=== PATIENT | male | born 1960 | race Caucasian/White ===

== ENCOUNTER 2022-05-15 11:40 | Emergency (ER) | payer OTHER, SELFPAY ==
[2022-05-15 11:41] VITALS: BP 121/88; PULSE 99; RESP 22; TEMP 35.9; O2SAT 98
--- NOTE | 2022-05-15 17:29 | DI.CT.S_ITS ---
PROCEDURE: CT ABDOMEN PELVIS W CON INDICATIONS: left flank pain, wheezing TECHNIQUE: After the administration of oral and IV contrast, axial sections were acquired from the lung bases to the pubic symphysis. Coronal and sagittal reformats were performed. For radiation dose reduction, the following was used: automated exposure control, adjustment of mA and/or kV according to patient size. COMPARISON: None. FINDINGS: Image quality: Excellent. Lung bases: There is a 0.7 cm subpleural nodule in lingula. Small hiatal hernia. Heart: No significant findings. ABDOMEN: Liver: Unremarkable. Gallbladder: Unremarkable. Biliary ducts: Unremarkable. Pancreas: Unremarkable. Spleen: Unremarkable. Adrenal Glands: Unremarkable. Kidneys and Ureters: Unremarkable. Stomach and Bowel: Stomach, small bowel loops, and colon are unremarkable. There is a large amount of stool in colon. Mild diverticulosis. No acute diverticulitis. Normal appendix. Peritoneum: No abnormal intraperitoneal fluid. No free air. Ventral Wall: No hernia. Abdominal Nodes: No retroperitoneal or mesenteric adenopathy by size criteria. Vessels: Aorta and inferior vena cava are normal in size. PELVIS: Pelvic Organs: Unremarkable. Bladder: Unremarkable. Pelvic Nodes: No enlarged lymph nodes. Miscellaneous: Small fat containing inguinal hernias are seen. Bones: Moderate chronic compression fracture of L5. Degenerative changes in lumbar spine. There is moderate to severe central canal stenosis secondary to short pedicles and posterior disc bulge. IMPRESSION: 1. No acute abnormalities in abdomen or pelvis. 2. A 0.7 cm subpleural nodule in lingula. Please see enclosed follow-up recommendation. 3. Diverticulosis without diverticulitis. 4. A large amount of stool in colon. 5. Moderate chronic compression fracture of L5. 6. 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 Fleischner Society criteria for SOLID lung nodule followup. Nodule size (mm)Low-risk patientHigh-risk patient?4No follow-up neededFollow-up at 12 mo; if no change, no further follow-up>[id number] CT at 12 mo; if no change, no further follow-up needed.Initial follow-up CT at 6-12 mo, then 18-24 mo if no change. >6-8Initial follow-up CT at 6-12 mo, then 18-24 mo if no change. Initial follow-up CT at 3-6 mo, then 9-12 mo and 24 mo if no change. >8Follow-up CT at 3, 9, 24 mo. Or PET and/or biopsy.Same as for low-risk pts. Dominant nodule(s) with part-solid or solid component. [address] to confirm persistence. If persistent, consider biopsy or surgical resection, debra if lesions have >5 mm solid component. Dictated by: Cher Dunn M.D. on 05/15/2022 at 18:58 Approved by: Cher Dunn M.D. on 05/15/2022 at 19:04
--- NOTE | 2022-05-15 17:31 | DI.RAD.S_ITS ---
PROCEDURE: XR CHEST 2V INDICATIONS: wheezing TECHNIQUE: 2 views of the chest were acquired. COMPARISON: None. FINDINGS: Surgical changes and devices: None. Lungs and pleura: Lungs are clear. No pleural effusions or pneumothorax. Mediastinum: Mediastinal contours are normal. Heart size is normal. Bones and chest wall: No suspicious bony abnormalities. Soft tissues appear unremarkable. IMPRESSION: No acute cardiopulmonary disease. Dictated by: Cher Dunn M.D. on 05/15/2022 at 18:53 Approved by: Cher Dunn M.D. on 05/15/2022 at 18:54
--- NOTE | 2022-05-15 17:31 | ED_ITS ---
HPI - Sepsis <JACK Landin - Last Filed: 05/15/22 20:12> General Chief Complaint: Urogenital-Male Evaluation Sepsis Screen: Possible Sepsis Risk Sepsis Infection Criteria Present: Suspected New Infection Narrative: This is a 62-year-old male with history of COPD, is a current smoker, states that he has not seen a doctor in a long time and does not take any significant medications. He states that he is homeless, staying in a hotel the last few nights as his son bought him hotel room, he had onset of left flank pain, states it was quite severe and he is having muscle spasms of his low back. He endorses having low back pain in his history but denies any new significant pain or radiculopathy. He denies any weakness or difficulty ambulating, endorses feeling short of breath, having diaphoresis, states that he has a history of diabetes but does not take any medication. He endorses urinary urgency, frequency, states there has been new sexual partners, denies any penile drainage, denies any scrotal edema or testicular pain. He states that he is COVID vaccinated, states that he feels short of breath, is wheezing, does not have any inhalers because he does not go to the doctor. He called an ambulance and came in by EMS for reported chronic dental pain and left flank pain. Patient states that he has difficulty emptying his bladder, has urinary urgency, burning and frequency, states that he voids frequently to try and empty his bladder. Endorses that he has prostate issues. Review of Systems <JACK Landin - Last Filed: 05/15/22 20:12> Review of Systems Narrative: Review of systems is negative for acute abnormalities unless otherwise noted in HPI Patient History <JACK Landin - Last Filed: 05/15/22 20:12> Social History Smoking Status: Current every day smoker Smoking Status: Current every day smoker Substance Use Type: does not use Exam <JACK Landin - Last Filed: 05/15/22 20:12> Narrative Exam Narrative: Reviewed vitals signs and nursing notes. General: cooperative, comfortable, in no acute distress, well groomed HEENT: symmetrical facial expressions, moist mucous membranes Cardiovascular: regular rate and rhythm, no peripheral edema, warm extremities Respiratory: normal effort, able to speak in complete sentences, wheezing throughout inspiratory and expiratory breaths, without stridor, no rhonchi, diminished breath sounds or hypoxia, mild tachypnea. GI: abdomen soft, nontender to palpation, nondistended, without masses, rebound tenderness or exquisite tenderness with exam. MSK: moves all extremities, neurovascularly intact, no weakness, normal tone Skin: brisk capillary refill, without pallor or erythema Neuro: normal speech and cognition, A&O x3, ambulatory, clear speech Psych: mental status is grossly normal, congruent mood, normal affect, pleasant and cooperative Initial Vital Signs Initial Vital Signs: Vital Signs Temperature 96.7 F L 05/15/22 11:41 Pulse Rate 99 H 05/15/22 11:41 Respiratory Rate 22 05/15/22 11:41 Blood Pressure 121/88 05/15/22 11:41 Pulse Oximetry 98 05/15/22 11:41 Oxygen Delivery Method 05/15/22 11:41 <Vanessa Rowell DO - Last Filed: 05/15/22 20:34> Initial Vital Signs Initial Vital Signs: Vital Signs Temperature 96.7 F L 05/15/22 11:41 Pulse Rate 99 H 05/15/22 11:41 Respiratory Rate 22 05/15/22 11:41 Blood Pressure 121/88 05/15/22 11:41 Pulse Oximetry 98 05/15/22 11:41 Oxygen Delivery Method 05/15/22 11:41 Course <JACK Landin - Last Filed: 05/15/22 20:12> Course Course Narrative: Patient was requesting pain medication, he was given Toradol and hydromorphone, a Senior catheter was placed as patient states he could not void and his bladder appeared full on CT scan. 400 mL were drained from his bladder. Orders Ordered: ED Orders 05/15/22 11:47 Consult to MARKETING PERFORMANCE ANALYST - Remote Recruiter Stat 05/15/22 17:28 EKG-12 Lead Stat RT Consult Eval and Treat NOW 05/15/22 17:29 CT abdomen pelvis w con Stat 05/15/22 17:31 Chest [XR chest 2V] Stat 05/15/22 18:35 Blood Culture Stat 05/15/22 19:00 Chlamydia Gonorrhea PCR -URINE Stat 05/15/22 19:10 COVID19 -Nasal RAPID/Pre-Proc Stat UA Complete [Urinalysis and Microscopic] Stat Albuterol/Ipratropium (Albuterol/Ipratropium 3 Ml Ampul) 3 ml INH Q1H PRN PRN Reason: Shortness Of Breath Last Admin: 05/15/22 17:56 Dose: 3 ml Documented By: ELAINA Bisacodyl (Bisacodyl 10 Mg Supp) 10 mg [place] DAILY KOURTNEY Discontinued Medications Albuterol (Albuterol Hfa Prepack) 1 [place] [facility] [place] Stop: 05/15/22 18:30 Last Admin: 05/15/22 18:37 Dose: 1 box Documented By: ELAINA Hydromorphone HCl (Hydromorphone 0.5 Mg Inj) 0.5 mg IV NOW ONE Stop: 05/15/22 18:56 Last Admin: 05/15/22 19:04 Dose: 0.5 mg Documented By: WENDY Lactated Ringer's (Lactated Ringers) 1,000 mls @ 1,000 mls/hr IV BOLUS ONE Stop: 05/15/22 18:28 Last Admin: 05/15/22 18:37 Dose: 1,000 mls/hr Documented By: WENDY Ketorolac Tromethamine (Ketorolac 30 Mg/Ml Vial) 15 mg IV NOW ONE Stop: 05/15/22 18:56 Last Admin: 05/15/22 19:04 Dose: 15 mg Documented By: WENDY Methylprednisolone (Methylprednisolone 40 Mg/Ml Vial) 80 mg INJ NOW ONE Stop: 05/15/22 19:23 Last Admin: 05/15/22 20:15 Dose: 80 mg Documented By: DELANEY Oxycodone/Acetaminophen (Oxycodone/Apap 5/325 Prepack) 1 [place] [facility] [place] Stop: 05/15/22 19:24 Polyethylene Glycol (Polyethylene Glycol 3350 17 Gm Powd.Pack) 17 gm PO NOW ONE Stop: 05/15/22 19:23 Vital Signs Vital signs: Vital Signs - 8 hr 05/15/22 18:01 05/15/22 18:34 05/15/22 18:53 Pulse Rate 80 86 87 Respiratory Rate 24 Blood Pressure Pulse Oximetry 96 100 Oxygen Delivery Method 05/15/22 18:53 05/15/22 19:00 05/15/22 19:00 Pulse Rate 87 Respiratory Rate Blood Pressure 134/85 129/76 Pulse Oximetry 97 Oxygen Delivery Method Room Air <Vanessa Rowell DO - Last Filed: 05/15/22 20:34> Orders Ordered: ED Orders 05/15/22 11:47 Consult to MARKETING PERFORMANCE ANALYST - Remote Recruiter Stat 05/15/22 17:28 EKG-12 Lead Stat RT Consult Eval and Treat NOW 05/15/22 17:29 CT abdomen pelvis w con Stat 05/15/22 17:31 Chest [XR chest 2V] Stat 05/15/22 18:35 Blood Culture Stat 05/15/22 19:00 Chlamydia Gonorrhea PCR -URINE Stat 05/15/22 19:10 COVID19 -Nasal RAPID/Pre-Proc Stat UA Complete [Urinalysis and Microscopic] Stat Albuterol/Ipratropium (Albuterol/Ipratropium 3 Ml Ampul) 3 ml INH Q1H PRN PRN Reason: Shortness Of Breath Last Admin: 05/15/22 17:56 Dose: 3 ml Documented By: ELAINA Bisacodyl (Bisacodyl 10 Mg Supp) 10 mg CA DAILY KOURTNEY Discontinued Medications Albuterol (Albuterol Hfa Prepack) 1 box [facility] SEEINSTR ONE Stop: 05/15/22 18:30 Last Admin: 05/15/22 18:37 Dose: 1 box Documented By: ELAINA Hydromorphone HCl (Hydromorphone 0.5 Mg Inj) 0.5 mg IV NOW ONE Stop: 05/15/22 18:56 Last Admin: 05/15/22 19:04 Dose: 0.5 mg Documented By: WENDY Lactated Ringer's (Lactated Ringers) 1,000 mls @ 1,000 mls/hr IV BOLUS ONE Stop: 05/15/22 18:28 Last Admin: 05/15/22 18:37 Dose: 1,000 mls/hr Documented By: WENDY Ketorolac Tromethamine (Ketorolac 30 Mg/Ml Vial) 15 mg IV NOW ONE Stop: 05/15/22 18:56 Last Admin: 05/15/22 19:04 Dose: 15 mg Documented By: WENDY Methylprednisolone (Methylprednisolone 40 Mg/Ml Vial) 80 mg INJ NOW ONE Stop: 05/15/22 19:23 Last Admin: 05/15/22 20:15 Dose: 80 mg Documented By: DELANEY Oxycodone/Acetaminophen (Oxycodone/Apap 5/325 Prepack) 1 bottle [facility] SEEINSTR ONE Stop: 05/15/22 19:24 Polyethylene Glycol (Polyethylene Glycol 3350 17 Gm Powd.Pack) 17 gm PO NOW ONE Stop: 05/15/22 19:23 Vital Signs Vital signs: Vital Signs - 8 hr 05/15/22 18:01 05/15/22 18:34 05/15/22 18:53 Pulse Rate 80 86 87 Respiratory Rate 24 Blood Pressure Pulse Oximetry 96 100 Oxygen Delivery Method 05/15/22 18:53 05/15/22 19:00 05/15/22 19:00 Pulse Rate 87 Respiratory Rate Blood Pressure 134/85 129/76 Pulse Oximetry 97 Oxygen Delivery Method Room Air Sepsis Guideline Criteria <JACK Landin - Last Filed: 05/15/22 20:12> Level 1 - Infection Sepsis Infection Criteria Present: Suspected New Infection Treatment Initiated Antibiotics:: IV antimicrobials will be initiated as soon as possible after recognition of sepsis state and within one hour for both sepsis and septic shock. MDM - Sepsis <JACK Landin - Last Filed: 05/15/22 20:12> Lab Data Result diagrams: 05/15/22 11:30 05/15/22 11:30 Labs: Lab Results 05/15/22 05/15/22 05/15/22 Range/Units 11:30 11:30 11:30 WBC 7.1 (4.5-11.0) X10^3/uL RBC 5.46 (4.5-5.9) X10^6/uL Hgb 17.5 (13.5-17.5) g/dL Hct 51.5 (41-53) % MCV 94.4 (80-100) fL MCH 32.0 (26-34) PG MCHC 33.9 (30-36) % RDW 14.3 (11.6-14.8) % Plt Count 256 (150-400) X10^3/uL Neut % (Auto) 56.2 (50-75) % Lymph % (Auto) 31.1 (25-40) % [place] % (Auto) 5.9 (3-14) % Eos % (Auto) 5.7 H (2-4) % Baso % (Auto) 1.1 (0-2) % Neut # (Auto) 4000 (2173-9392) /uL Lymph # (Auto) 2200 (5967-1776) /uL [place] # (Auto) 400 (0-900) /uL Eos # (Auto) 400 (0-450) /uL Baso # (Auto) 100 (0-100) /uL Sodium 137 (137-145) mmol/L Potassium 4.2 (3.4-5.1) mmol/L Chloride 95 L (98-107) mmol/L Carbon Dioxide 34 H (22-32) mmol/L BUN 19 (9-20) mg/dL Creatinine 0.84 (0.66-1.25) mg/dL Estimated GFR > 60 (>60) mL/min BUN/Creatinine Ratio 22.6 H (6-22) Glucose 191 H (80-110) mg/dL Lactate 2.2 H (0.7-2.1) mmol/L Calcium 9.6 (8.4-10.2) mg/dL Magnesium (1.6-2.3) mg/dL Total Bilirubin 0.4 (0.2-1.3) mg/dL AST 27 (17-59) IU/L ALT 22 (<50) IU/L Alkaline Phosphatase 73 (38-126) U/L Total Creatine Kinase 34 L (55-170) U/L CK-MB (CK-2) TNP CK-MB (CK-2) Rel Index TNP Troponin I < 0.012 (0.01-0.034) ng/mL Total Protein 7.5 (6.3-8.2) g/dL Albumin 4.1 (3.5-5.0) g/dL Globulin 3.4 (1.7-4.1) g/dL Albumin/Globulin Ratio 1.2 (1.0-2.8) Procalcitonin 0.04 (<0.5) ng/mL Urine Color Urine Appearance Urine pH (4.5-8.0) Ur Specific [place] (1.000-1.035) Urine Protein (Negative) Urine Glucose (UA) (Negative) g/dL Urine Ketones (NEGATIVE) Urine Occult Blood (Negative) Urine Nitrate (Negative) Urine Bilirubin (NEGATIVE) Urine Urobilinogen (0.2) E.U./dL Ur Leukocyte Esterase (NEGATIVE) Urine RBC (0-5/HPF) Urine WBC (0-5/HPF) Urine Bacteria (None) Ur Culture Indicated? SARS-CoV-2 (PCR) (Negative) 05/15/22 05/15/22 05/15/22 Range/Units 11:30 19:10 19:10 WBC (4.5-11.0) X10^3/uL RBC (4.5-5.9) X10^6/uL Hgb (13.5-17.5) g/dL Hct (41-53) % MCV (80-100) fL MCH (26-34) PG MCHC (30-36) % RDW (11.6-14.8) % Plt Count (150-400) X10^3/uL Neut % (Auto) (50-75) % Lymph % (Auto) (25-40) % [place] % (Auto) (3-14) % Eos % (Auto) (2-4) % Baso % (Auto) (0-2) % Neut # (Auto) (5983-7134) /uL Lymph # (Auto) (6807-5575) /uL [place] # (Auto) (0-900) /uL Eos # (Auto) (0-450) /uL Baso # (Auto) (0-100) /uL Sodium (137-145) mmol/L Potassium (3.4-5.1) mmol/L Chloride (98-107) mmol/L Carbon Dioxide (22-32) mmol/L BUN (9-20) mg/dL Creatinine (0.66-1.25) mg/dL Estimated GFR (>60) mL/min BUN/Creatinine Ratio (6-22) Glucose (80-110) mg/dL Lactate (0.7-2.1) mmol/L Calcium (8.4-10.2) mg/dL Magnesium 1.9 (1.6-2.3) mg/dL Total Bilirubin (0.2-1.3) mg/dL AST (17-59) IU/L ALT (<50) IU/L Alkaline Phosphatase (38-126) U/L Total Creatine Kinase (55-170) U/L CK-MB (CK-2) CK-MB (CK-2) Rel Index Troponin I (0.01-0.034) ng/mL Total Protein (6.3-8.2) g/dL Albumin (3.5-5.0) g/dL Globulin (1.7-4.1) g/dL Albumin/Globulin Ratio (1.0-2.8) Procalcitonin (<0.5) ng/mL Urine Color Yellow Urine Appearance Clear Urine pH 5.0 (4.5-8.0) Ur Specific [place] <=1.005 (1.000-1.035) Urine Protein Negative (Negative) Urine Glucose (UA) Negative (Negative) g/dL Urine Ketones Negative (NEGATIVE) Urine Occult Blood 1+ H (Negative) Urine Nitrate Negative (Negative) Urine Bilirubin Negative (NEGATIVE) Urine Urobilinogen 0.2 (0.2) E.U./dL Ur Leukocyte Esterase Negative (NEGATIVE) Urine RBC 0-1/hpf (0-5/HPF) Urine WBC None seen (0-5/HPF) Urine Bacteria None seen (None) Ur Culture Indicated? Cult not indicated SARS-CoV-2 (PCR) Negative (Negative) 05/15/22 Range/Units 19:53 WBC (4.5-11.0) X10^3/uL RBC (4.5-5.9) X10^6/uL Hgb (13.5-17.5) g/dL Hct (41-53) % MCV (80-100) fL MCH (26-34) PG MCHC (30-36) % RDW (11.6-14.8) % Plt Count (150-400) X10^3/uL Neut % (Auto) (50-75) % Lymph % (Auto) (25-40) % [place] % (Auto) (3-14) % Eos % (Auto) (2-4) % Baso % (Auto) (0-2) % Neut # (Auto) (9143-8342) /uL Lymph # (Auto) (2344-2343) /uL [place] # (Auto) (0-900) /uL Eos # (Auto) (0-450) /uL Baso # (Auto) (0-100) /uL Sodium (137-145) mmol/L Potassium (3.4-5.1) mmol/L Chloride (98-107) mmol/L Carbon Dioxide (22-32) mmol/L BUN (9-20) mg/dL Creatinine (0.66-1.25) mg/dL Estimated GFR (>60) mL/min BUN/Creatinine Ratio (6-22) Glucose (80-110) mg/dL Lactate 1.5 (0.7-2.1) mmol/L Calcium (8.4-10.2) mg/dL Magnesium (1.6-2.3) mg/dL Total Bilirubin (0.2-1.3) mg/dL AST (17-59) IU/L ALT (<50) IU/L Alkaline Phosphatase (38-126) U/L Total Creatine Kinase (55-170) U/L CK-MB (CK-2) CK-MB (CK-2) Rel Index Troponin I (0.01-0.034) ng/mL Total Protein (6.3-8.2) g/dL Albumin (3.5-5.0) g/dL Globulin (1.7-4.1) g/dL Albumin/Globulin Ratio (1.0-2.8) Procalcitonin (<0.5) ng/mL Urine Color Urine Appearance Urine pH (4.5-8.0) Ur Specific [place] (1.000-1.035) Urine Protein (Negative) Urine Glucose (UA) (Negative) g/dL Urine Ketones (NEGATIVE) Urine Occult Blood (Negative) Urine Nitrate (Negative) Urine Bilirubin (NEGATIVE) Urine Urobilinogen (0.2) E.U./dL Ur Leukocyte Esterase (NEGATIVE) Urine RBC (0-5/HPF) Urine WBC (0-5/HPF) Urine Bacteria (None) Ur Culture Indicated? SARS-CoV-2 (PCR) (Negative) Imaging Data Chest x-ray: Radiologist's Impression: PROCEDURE:? XR CHEST 2V ? INDICATIONS:? wheezing ? TECHNIQUE:? 2 views of the chest were acquired.? ? COMPARISON:? None. ? FINDINGS:? ? Surgical changes and devices:? None.? ? Lungs and pleura:? Lungs are clear.? No pleural effusions or pneumothorax.? ? Mediastinum:? Mediastinal contours are normal.? Heart size is normal.? ? Bones and chest wall:? No suspicious bony abnormalities.? Soft tissues appear unremarkable.? ? IMPRESSION:? No acute cardiopulmonary disease. ? ? ? Dictated by: Cher Dunn M.D. on 05/15/2022 at 18:53 ? ? Approved by: Cher Dunn M.D. on 05/15/2022 at 18:54 ? CT scan - abdomen/pelvis: Radiologist's Impression: PROCEDURE:? CT ABDOMEN PELVIS W CON ? INDICATIONS:? left flank pain, wheezing ? TECHNIQUE:? After the administration of oral and IV contrast, axial sections were acquired from the lung bases to the pubic symphysis.? Coronal and sagittal reformats were performed.? For radiation dose reduction, the following was used:? automated exposure control, adjustment of mA and/or kV according to patient size. ? COMPARISON:? None. ? FINDINGS:? Image quality:? Excellent.? ? Lung bases:? There is a 0.7 cm subpleural nodule in lingula.? Small hiatal hernia.? Heart:? No significant findings. ? ? ABDOMEN: Liver:? Unremarkable.? ? Gallbladder:? Unremarkable.? ? Biliary ducts:? Unremarkable.? ? Pancreas:? Unremarkable.? ? Spleen:? Unremarkable.? ? Adrenal Glands:? Unremarkable.? ? Kidneys and Ureters:? Unremarkable.? ? ? Stomach and Bowel:? Stomach, small bowel loops, and colon are unremarkable.? There is a large amount of stool in colon.? Mild diverticulosis.? No acute diverticulitis.? Normal appendix. Peritoneum:? No abnormal intraperitoneal fluid.? No free air.? ? Ventral Wall: ? No hernia.? Abdominal Nodes:? No retroperitoneal or mesenteric adenopathy by size criteria.? Vessels:? Aorta and inferior vena cava are normal in size.? ? PELVIS: Pelvic Organs:? Unremarkable.? ? Bladder:? Unremarkable.? ? Pelvic Nodes: No enlarged lymph nodes.? Miscellaneous:? Small fat containing inguinal hernias are seen. ? ? ? Bones:? Moderate chronic compression fracture of L5.? Degenerative changes in lumbar spine.? There is moderate to severe central canal stenosis secondary to short pedicles and posterior disc bulge. ? ? IMPRESSION:? ? 1. No acute abnormalities in abdomen or pelvis. 2. A 0.7 cm subpleural nodule in lingula.? Please see enclosed follow-up recommendation. 3. Diverticulosis without diverticulitis. 4. A large amount of stool in colon. 5. Moderate chronic compression fracture of L5. 6. 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 ? ? Fleischner Society criteria for SOLID lung nodule followup.? Nodule size (mm)Low-risk patientHigh-risk patient?4No follow-up neededFollow-up at 12 mo; if no change, no further follow-up>[id number] CT at 12 mo; if no change, no further follow-up needed.Initial follow-up CT at 6-12 mo, then 18-24 mo if no change.? >6-8Initial follow-up CT at 6-12 mo, then 18-24 mo if no change. Initial follow- up CT at 3-6 mo, then 9-12 mo and 24 mo if no change.? >8Follow-up CT at 3, 9, 24 mo.? Or PET and/or biopsy.Same as for low-risk pts.? Dominant nodule(s) with part-solid or solid component.? [address] to confirm persistence.? If persistent, consider biopsy or surgical resection, debra if lesions have >5 mm solid component.? Dictated by: Cher Dunn M.D. on 05/15/2022 at 18:58 ? ? Approved by: Cher Dunn M.D. on 05/15/2022 at 19:04 ? ECG Data Interpretation: EKG independently reviewed by myself at 1745 reveals normal sinus rhythm at 82 bpm with regular axis and intervals. No STEMI, ST segment changes, arrhythmia, or acute ischemic changes. MDM Narrative Medical decision making narrative: This is a 8-year-old male without recent medical care who presents to the emergency department by ambulance reporting that he has left flank pain, he is homeless, endorses urinary urgency, dysuria, wheezing, shortness of breath and diaphoresis with chills. Patient has a history of COPD, is a current smoker, he also complains of chronic dental decay with no obvious signs of dental abscess or erythema in his oral pharynx. Tachypneic, had inspiratory and expiratory wheezes,, this was markedly improved with a DuoNeb x1 and patient feels much better. His initial lab work showed a carbon dioxide level of 34 on his venous blood, his lactate is elevated at 2.2, GFR is over 60, with a creatinine of 0.84, no leukocytosis, anemia, patient denies any reported blood in his urine or his stool. CT of his abdomen and pelvis with contrast was obtained for concerned about bowel verses urinary obstruction or possible nephrolithiasis. CT abdomen pelvis shows no acute abnormalities in the abdomen or pelvis, a 7 cm subpleural nodule is visible in the lingula, diverticulosis without dive rticulitis with a large amount of stool in the colon. Moderate chronic compression fracture of L5 with moderate to severe canal stenosis at the lumbar spine. Patient was unable to void, endorses history of urinary retention and urinary frequency, a Senior catheter was placed for a urine sample and to drain his bladder. 400 mL were drained after it was placed. His chest x-ray shows no acute cardiopulmonary abnormality. EKG without any acute ST changes or arrhythmia. Patient states that he is homeless, his son bottom a hotel for the last couple of nights but he is recently from [place]. He does not have any resources, any money, does not have anywhere to go tonight. Social work came to meet with the patient about local resources and options to obtain his medications, and she states that there are no shelters here in [place] he currently is medically cleared for discharge and does not have anywhere to go. I tried to have them obtain a primary care appointment for the patient to establish care for follow- up and this is not able to be done tonight either. Patient is tearful, states that he does not have a plan and does not know what to do. He states that his pain was well controlled with Toradol and Dilaudid. Was given a prepack of Percocet to use as needed for pain, his Senior catheter remains, this will be DC prior to discharge. Suspect the trace of blood in his urine is from Senior catheter insertion. Blood cultures are pending, prepack of albuterol with a mask and spacer was given to the patient and a prescription of 1 was called in to [facility]. Patient was given methylprednisolone IV, a bisacodyl suppository for his constipation with MiraLax. I discussed with him the nodule seen on his CT scan in his lung, I recommend follow-up of this to determine if it is growing or not. He is currently without respiratory distress, is not wheezing, without hypoxia, fever, tachycardia, or other signs of systemic illness. I have discussed with the patient that I have to discharge him because there are no pertinent findings on his workup today other than his wheezing from his known COPD. Please see social work's note. Recheck of patient's lactate after IV hydration is 1.5. Patient is appropriate and amenable to discharge home. Vital signs are stable on repeat examination is unremarkable. Patient has been informed of results. Patient has been given strict return to ER precautions for any new or worsening symptoms. Patient understands to follow up closely with outpatient providers as instructed. Patient understands plan and agrees to discharge home. All questions and concerns answered at this time. <Vanessa Rowell, DO - Last Filed: 05/15/22 20:34> Lab Data Labs: Lab Results 05/15/22 05/15/22 05/15/22 Range/Units 11:30 11:30 11:30 WBC 7.1 (4.5-11.0) X10^3/uL RBC 5.46 (4.5-5.9) X10^6/uL Hgb 17.5 (13.5-17.5) g/dL Hct 51.5 (41-53) % MCV 94.4 (80-100) fL MCH 32.0 (26-34) PG MCHC 33.9 (30-36) % RDW 14.3 (11.6-14.8) % Plt Count 256 (150-400) X10^3/uL Neut % (Auto) 56.2 (50-75) % Lymph % (Auto) 31.1 (25-40) % [place] % (Auto) 5.9 (3-14) % Eos % (Auto) 5.7 H (2-4) % Baso % (Auto) 1.1 (0-2) % Neut # (Auto) 4000 (0843-3978) /uL Lymph # (Auto) 2200 (8661-8603) /uL [place] # (Auto) 400 (0-900) /uL Eos # (Auto) 400 (0-450) /uL Baso # (Auto) 100 (0-100) /uL Sodium 137 (137-145) mmol/L Potassium 4.2 (3.4-5.1) mmol/L Chloride 95 L (98-107) mmol/L Carbon Dioxide 34 H (22-32) mmol/L BUN 19 (9-20) mg/dL Creatinine 0.84 (0.66-1.25) mg/dL Estimated GFR > 60 (>60) mL/min BUN/Creatinine Ratio 22.6 H (6-22) Glucose 191 H (80-110) mg/dL Lactate 2.2 H (0.7-2.1) mmol/L Calcium 9.6 (8.4-10.2) mg/dL Magnesium (1.6-2.3) mg/dL Total Bilirubin 0.4 (0.2-1.3) mg/dL AST 27 (17-59) IU/L ALT 22 (<50) IU/L Alkaline Phosphatase 73 (38-126) U/L Total Creatine Kinase 34 L (55-170) U/L CK-MB (CK-2) TNP CK-MB (CK-2) Rel Index TNP Troponin I < 0.012 (0.01-0.034) ng/mL Total Protein 7.5 (6.3-8.2) g/dL Albumin 4.1 (3.5-5.0) g/dL Globulin 3.4 (1.7-4.1) g/dL Albumin/Globulin Ratio 1.2 (1.0-2.8) Procalcitonin 0.04 (<0.5) ng/mL Urine Color Urine Appearance Urine pH (4.5-8.0) Ur Specific [place] (1.000-1.035) Urine Protein (Negative) Urine Glucose (UA) (Negative) g/dL Urine Ketones (NEGATIVE) Urine Occult Blood (Negative) Urine Nitrate (Negative) Urine Bilirubin (NEGATIVE) Urine Urobilinogen (0.2) E.U./dL Ur Leukocyte Esterase (NEGATIVE) Urine RBC (0-5/HPF) Urine WBC (0-5/HPF) Urine Bacteria (None) Ur Culture Indicated? SARS-CoV-2 (PCR) (Negative) 05/15/22 05/15/22 05/15/22 Range/Units 11:30 19:10 19:10 WBC (4.5-11.0) X10^3/uL RBC (4.5-5.9) X10^6/uL Hgb (13.5-17.5) g/dL Hct (41-53) % MCV (80-100) fL MCH (26-34) PG MCHC (30-36) % RDW (11.6-14.8) % Plt Count (150-400) X10^3/uL Neut % (Auto) (50-75) % Lymph % (Auto) (25-40) % [place] % (Auto) (3-14) % Eos % (Auto) (2-4) % Baso % (Auto) (0-2) % Neut # (Auto) (5174-1144) /uL Lymph # (Auto) (3349-9431) /uL [place] # (Auto) (0-900) /uL Eos # (Auto) (0-450) /uL Baso # (Auto) (0-100) /uL Sodium (137-145) mmol/L Potassium (3.4-5.1) mmol/L Chloride (98-107) mmol/L Carbon Dioxide (22-32) mmol/L BUN (9-20) mg/dL Creatinine (0.66-1.25) mg/dL Estimated GFR (>60) mL/min BUN/Creatinine Ratio (6-22) Glucose (80-110) mg/dL Lactate (0.7-2.1) mmol/L Calcium (8.4-10.2) mg/dL Magnesium 1.9 (1.6-2.3) mg/dL Total Bilirubin (0.2-1.3) mg/dL AST (17-59) IU/L ALT (<50) IU/L Alkaline Phosphatase (38-126) U/L Total Creatine Kinase (55-170) U/L CK-MB (CK-2) CK-MB (CK-2) Rel Index Troponin I (0.01-0.034) ng/mL Total Protein (6.3-8.2) g/dL Albumin (3.5-5.0) g/dL Globulin (1.7-4.1) g/dL Albumin/Globulin Ratio (1.0-2.8) Procalcitonin (<0.5) ng/mL Urine Color Yellow Urine Appearance Clear Urine pH 5.0 (4.5-8.0) Ur Specific [place] <=1.005 (1.000-1.035) Urine Protein Negative (Negative) Urine Glucose (UA) Negative (Negative) g/dL Urine Ketones Negative (NEGATIVE) Urine Occult Blood 1+ H (Negative) Urine Nitrate Negative (Negative) Urine Bilirubin Negative (NEGATIVE) Urine Urobilinogen 0.2 (0.2) E.U./dL Ur Leukocyte Esterase Negative (NEGATIVE) Urine RBC 0-1/hpf (0-5/HPF) Urine WBC None seen (0-5/HPF) Urine Bacteria None seen (None) Ur Culture Indicated? Cult not indicated SARS-CoV-2 (PCR) Negative (Negative) 05/15/22 Range/Units 19:53 WBC (4.5-11.0) X10^3/uL RBC (4.5-5.9) X10^6/uL Hgb (13.5-17.5) g/dL Hct (41-53) % MCV (80-100) fL MCH (26-34) PG MCHC (30-36) % RDW (11.6-14.8) % Plt Count (150-400) X10^3/uL Neut % (Auto) (50-75) % Lymph % (Auto) (25-40) % [place] % (Auto) (3-14) % Eos % (Auto) (2-4) % Baso % (Auto) (0-2) % Neut # (Auto) (5377-5710) /uL Lymph # (Auto) (5371-6664) /uL [place] # (Auto) (0-900) /uL Eos # (Auto) (0-450) /uL Baso # (Auto) (0-100) /uL Sodium (137-145) mmol/L Potassium (3.4-5.1) mmol/L Chloride (98-107) mmol/L Carbon Dioxide (22-32) mmol/L BUN (9-20) mg/dL Creatinine (0.66-1.25) mg/dL Estimated GFR (>60) mL/min BUN/Creatinine Ratio (6-22) Glucose (80-110) mg/dL Lactate 1.5 (0.7-2.1) mmol/L Calcium (8.4-10.2) mg/dL Magnesium (1.6-2.3) mg/dL Total Bilirubin (0.2-1.3) mg/dL AST (17-59) IU/L ALT (<50) IU/L Alkaline Phosphatase (38-126) U/L Total Creatine Kinase (55-170) U/L CK-MB (CK-2) CK-MB (CK-2) Rel Index Troponin I (0.01-0.034) ng/mL Total Protein (6.3-8.2) g/dL Albumin (3.5-5.0) g/dL Globulin (1.7-4.1) g/dL Albumin/Globulin Ratio (1.0-2.8) Procalcitonin (<0.5) ng/mL Urine Color Urine Appearance Urine pH (4.5-8.0) Ur Specific [place] (1.000-1.035) Urine Protein (Negative) Urine Glucose (UA) (Negative) g/dL Urine Ketones (NEGATIVE) Urine Occult Blood (Negative) Urine Nitrate (Negative) Urine Bilirubin (NEGATIVE) Urine Urobilinogen (0.2) E.U./dL Ur Leukocyte Esterase (NEGATIVE) Urine RBC (0-5/HPF) Urine WBC (0-5/HPF) Urine Bacteria (None) Ur Culture Indicated? SARS-CoV-2 (PCR) (Negative) Discharge Plan Departure Patient Disposition: Home Clinical Impression: Acute flank pain, Lung nodule seen on imaging study, Cervical stenosis of spinal canal, Bilateral wheezing, Dental decay Constipated Qualifiers: Constipation type: slow transit constipation Qualified Code(s): K59.01 - Slow transit constipation COPD (chronic obstructive pulmonary disease) Qualifiers: COPD type: COPD with acute exacerbation Qualified Code(s): J44.1 - Chronic obstructive pulmonary disease with (acute) exacerbation Hematuria Qualifiers: Hematuria type: unspecified type Qualified Code(s): R31.9 - Hematuria, unspecified Instructions: Chronic Obstructive Pulmonary Disease, DI for Constipation, DI for Tooth Decay, DI for Flank Pain Activity Restrictions/Additional Instructions: *You have been diagnosed with back pain/flank pain without known reason. There is no kidney stones, or obstruction of your urinary system. Your chest x-ray does not show any pneumonia, this is good news, I believe you were in a COPD exacerbation with your wheezing. Please use the albuterol every 4 hours as needed for shortness of breath or wheezing. CT of your abdomen showed that there is an incidental 0.7 cm nodule found in your lung, please find a primary care provider and schedule follow-up evaluation so that they can keep this on their rate are and image it again in 6 weeks or more. You did have a large amount of stool in the colon but no signs of inflammation. You have severe art hritis in your lumbar spine, this could be what you are feeling as far as your back pain. Please take Tylenol and ibuprofen as needed for your pain, use the chlorhexidine mouthwash for your dental decay and try to obtain a primary care provider at any place that you can find. I wish you safety, please call any life line you may have for a safe place to stay tonight. I am sorry that we were unable to find this for you. Thank you for trusting us with your care, I hope that you feel better soon, please come back if you have any severe symptoms of worsening. *What to do: *Please continue to take your regular medications as directed. [x] New medication prescriptions sent to your pharmacy: [ [facility]] [ ] New medication written as a paper prescription [ ] No new medications given *Please follow up with your primary care provider in 2-3 days, call for an appointment. Let them know you were seen in the Emergency Department and that we asked that you be seen for follow-up. We will electronically transmit a record of today's note if your PCP is in our system *If you do not have a primary care provider please contact [phone] to establish care with one of the [facility] primary care providers. *Return to Emergency Department if you should have any new, worsening, or concerning symptoms, such as [fever greater than 101F, chills, worsening pain, persistent vomiting or other bothersome symptoms]. Prescriptions: New albuterol sulfate 90 mcg/actuation HFA aerosol inhaler 1 inh inhalation QID PRN (Reason: shortness of breath or wheezing) Qty: 8.5 3RF chlorhexidine gluconate 0.12 % mouthwash 15 ml buccal DAILY Qty: 118 0RF ibuprofen 800 mg tablet 800 mg PO Q8H PRN (Reason: pain) Qty: 30 0RF acetaminophen [Tylenol 8 Hour] 650 mg tablet extended release 650 mg PO Q8H PRN (Reason: fever or pain) Qty: 30 0RF <Vanessa Rowell, DO - Last Filed: 05/15/22 20:34> Cosign ED Attending Cosignature Attestation: I was immediately available in the department for consultation. Documentation has been reviewed.
[2022-05-15 17:39] LABS: Add Manual Diff / Slide Review NO; Basophils Absolute Auto 100 /uL (0-100); Basophils Percent Auto 1.1 % (0-2); Eosinophils Absolute Auto 400 /uL (0-450); Eosinophils Percent Auto 5.7 % (2-4); Hematocrit 51.5 % (41-53); Hemoglobin 17.5 g/dL (13.5-17.5); Lymphocytes Absolute Auto 2200 /uL (1100-4500); Lymphocytes Percent Auto 31.1 % (25-40); Mean Corpuscular HGB Conc 33.9 % (30-36); Mean Corpuscular Volume 94.4 fL (80-100); Monocytes Absolute Auto 400 /uL (0-900); Monocytes Percent Auto 5.9 % (3-14); Neutrophils Absolute Auto 4000 /uL (1500-7000); Neutrophils Percent Auto 56.2 % (50-75); Platelet Count 256 X10^3/uL (150-400); Red Blood Cell Count 5.46 X10^6/uL (4.5-5.9); Red Cell Distribution Width 14.3 % (11.6-14.8); White Blood Cell Count 7.1 X10^3/uL (4.5-11.0)
[2022-05-15] MEDS: ALBUTEROL/IPRATROPIUM 3 ML AMPUL INH (17:56)
[2022-05-15 18:01] VITALS: PULSE 80; RESP 24; O2SAT 96
[2022-05-15 18:08] LABS: Lactate (Lactic Acid) 2.2 mmol/L (0.7-2.1); Magnesium 1.9 mg/dL (1.6-2.3)
[2022-05-15 18:09] LABS: Alanine Aminotransferase 22 IU/L (<50); Albumin 4.1 g/dL (3.5-5.0); Albumin Globulin Ratio 1.2 (1.0-2.8); Alkaline Phosphatase 73 U/L (38-126); Aspartate Aminotransferase 27 IU/L (17-59); BUN Creatinine Ratio 22.6 (6-22); Bilirubin Total 0.4 mg/dL (0.2-1.3); Blood Urea Nitrogen 19 mg/dL (9-20); Calcium 9.6 mg/dL (8.4-10.2); Carbon Dioxide 34 mmol/L (22-32); Chloride 95 mmol/L (98-107); Creatine Kinase 34 U/L (55-170); Estimated Glomerular Filt Rate > 60 mL/min (>60); Globulin 3.4 g/dL (1.7-4.1); Glucose 191 mg/dL (80-110); HEMOLYSIS 17 (0-50); Potassium 4.2 mmol/L (3.4-5.1); Sodium 137 mmol/L (137-145); Total Protein 7.5 g/dL (6.3-8.2)
[2022-05-15 18:23] LABS: Troponin I < 0.012 ng/mL (0.01-0.034)
[2022-05-15 18:28] LABS: Procalcitonin 0.04 ng/mL (<0.5)
[2022-05-15 18:34] VITALS: PULSE 86
[2022-05-15] MEDS: ALBUTEROL HFA PREPACK 1 BOX MISC (18:37)
[2022-05-15] MEDS: LACTATED RINGERS 1,000 ML 1000 ML IV (18:37)
[2022-05-15 18:53] VITALS: BP 134/85; PULSE 87; O2SAT 100
[2022-05-15 19:00] VITALS: BP 129/76; PULSE 87; O2SAT 97
[2022-05-15] MEDS: KETOROLAC 30 MG/ML VIAL 15 MG IV (19:04)
[2022-05-15] MEDS: HYDROMORPHONE 0.5 MG INJ IV (19:04)
--- NOTE | 2022-05-15 19:17 | PC.NURSE ---
complaining of bilateral flank pain also
[2022-05-15 19:31] LABS: Appearance Urine UA CLEAR; Bilirubin Urine UA NEGATIVE (NEGATIVE); Color Urine UA YELLOW; Glucose Urine UA NEGATIVE (Negative); Ketones Urine UA NEGATIVE (NEGATIVE); Leukocyte Esterase Urine UA NEGATIVE (NEGATIVE); Nitrite Urine UA NEGATIVE (Negative); Occult Blood Urine UA 1+ (Negative); Protein Urine UA NEGATIVE (Negative); Specific Gravity Urine UA <=1.005 (1.000-1.035); Urobilinogen Urine UA 0.2 E.U./dL (0.2)
[2022-05-15 19:34] LABS: Reflexed Lactate in 2 Hours Y
[2022-05-15 19:44] LABS: RBC Urine 0-1/HPF (0-5/HPF); WBC Urine None Seen (0-5/HPF)
[2022-05-15 19:45] LABS: Bacteria Urine None Seen; Culture Indicated Urine Cult Not Indicated
[2022-05-15 19:58] LABS: COVID19 -Nasal RAPID Negative (Negative)
[2022-05-15 20:08] LABS: Lactate 2HR (Lactic Acid Rflx) 1.5 mmol/L (0.7-2.1)
--- NOTE | 2022-05-15 20:12 | CM.SWNOTE ---
[employer] farm worker met with patient at bedside. Patient A/O x4. Patient reported recently returning to the area from [place]. Patient grew up in this area and has family members in this area. 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 Patient reported his son had purchased a few nights at a local hotel for him. Patient reported he is not able to reach out to his family members for any help with transportation to shelters available or to assist with unhoused status. Patient receives SSI disability funds monthly but states he currently does not have funds as they were all spent getting back to [facility]. Patient reported he has approved section 8 housing voucher but is having difficulty navigating the section 8 website. Patient has a cell phone. When patient was asked what his plan was for himself when he left [place] to return to [facility], patient reported he came back here to here. When asked to explain what this meant, patient reported he had felt ill and presumed he would be dying soon and wanted to be home to do it. Patient denied any plan or intent to harm self. Patient was provided with information for [employer] and [employer]; discussed with patient that [facility] has laundry and shower/meal services even if he is not housed there. Patient was provided with [employer] card for any prescription cost concerns he may have. Patient reported he has medical coverage that will include his prescriptions that are being sent to [facility]. Patient was unable to provide any reason for his unwillingness to reach out to family for assistance. He denied estrangement and did not offer any other reasons. Patient still currently pending lab work but most likely to discharge. Patient reported he will not call family for transportation assistance. [employer] service was not answering when attempted to contact them for transportation help. Patient reported no interest in or [facility] shelters. Patient reported he would follow up with resources provided to see if they could connect him with housing/halfway options. [employer] worker was asked to assist with setting up PCP establishment appointment for follow up on some lab work that required it. Patient discharging post 8pm with no clinics open to call to assist with this task. [employer] worker offered to provide list of local clinics and those in [facility] but was informed these clinics would not meet the needs that was requested. Dusty Alvarenga [facility]
--- NOTE | 2022-05-15 20:19 | PC.NURSE ---
patient assessment done by provider, pt refused to answer questions from nurse.
[2022-05-15] MEDS: polyethylene glycoL 3350 17 GM POWD.PACK PO (20:43)
[2022-05-15] MEDS: OXYCODONE/APAP 5/325 PREPACK 1 BOTTLE MISC (20:47)
[2022-05-15 22:01] LABS: Urine N gonorrhoeae NOT DETECTED
[2022-05-15 22:05] LABS: Urine Chlamydia NOT DETECTED
== END 2022-05-15 21:09 | disposition home or self-care (01) ==
PROVIDERS: Emergency Medicine; Emergency Provider Nurse Practitioner Critical Care Medicine
DX: K59.01 Slow transit constipation (principal); J44.1 Chronic obstructive pulmonary disease with (acute) exacerbation; R31.9 Hematuria, unspecified; M62.830 Muscle spasm of back; R91.1 Solitary pulmonary nodule; R06.2 Wheezing; K02.9 Dental caries, unspecified; M48.02 Spinal stenosis, cervical region; Z20.822 Contact with and (suspected) exposure to COVID-19
CPT/HCPCS: 36415; 71046; 74177; 80053; 81001; 82550; 83605; 83735; 84145; 84484; 85025; 87040; 87491; 87591; 87635; 93005; 93010; 94640; 96361; 96374; 96375; 99284; C9803; J1170; J1885; J2920; Q9967